=== PATIENT | female | born 1970 | race Caucasian/White ===

== ENCOUNTER 2017-02-09 16:39 | Emergency (ER) | payer SELFPAY ==
[2017-02-09 16:40] VITALS: BMI 27.4
[2017-02-09 16:45] VITALS: RESP 18
[2017-02-09] MEDS ORDERED: Naproxen 550 mg Tab PO STA (17:06)
[2017-02-09] MEDS ORDERED: Naproxen 550 mg Tab PO ONE (17:10)
--- NOTE | 2017-02-09 17:37 | C.PDOC ---
History Of Present Illness Patient presents to ED c/o left knee pain x approx 1 week. She denies falls/ injuries, rash, fever, calf pain. Time Seen by Provider: 02/09/17 16:49 Chief Complaint (Nursing): Lower Extremity Problem/Injury History Per: Patient History/Exam Limitations: no limitations Onset/Duration Of Symptoms: Days (1 week) Current Symptoms Are (Timing): Still Present Severity: Mild Past Medical History Reviewed: Historical Data, Nursing Documentation, Vital Signs Vital Signs: Last Vital Signs Temp 98.2 F 02/09/17 17:48 Pulse 72 02/09/17 17:48 Resp 18 02/09/17 17:48 BP 125/72 02/09/17 17:48 Pulse Ox 98 02/09/17 17:48 - Medical History PMH: Anxiety - [facility] Procedures DIATHER/CRYO TURBINECTOM (05/24/13) ETHMOIDECTOMY (05/24/13) IMAGELESS COMPUTER ASSISTED SURGERY (05/24/13) Family History: States: No Known Family Hx - Social History Hx Tobacco Use: No Hx Alcohol Use: No Hx Substance Use: No - Immunization History Hx Tetanus Toxoid Vaccination: No Hx Influenza Vaccination: No Hx Pneumococcal Vaccination: No Review Of Systems Except As Marked, All Systems Reviewed And Found Negative. Constitutional: Negative for: Fever, Chills Cardiovascular: Negative for: Chest Pain Respiratory: Negative for: Shortness of Breath Musculoskeletal: Positive for: Other (right knee pain ). Negative for: Leg Pain , Foot Pain Skin: Negative for: Rash Neurological: Negative for: Weakness, Numbness Physical Exam - Physical Exam Appears: Well, Non-toxic, No Acute Distress Skin: Normal Color, Warm, Dry, No Rash Oral Mucosa: Moist Cardiovascular: Rhythm Regular Respiratory: Normal Breath Sounds, No Rales, No Rhonchi, No Wheezing Extremity: No Pedal Edema, No Calf Tenderness, Capillary Refill (< 2 sec all digits ), No Deformity, Other (left knee mild anterior TTP without swelling/ erythema/deformiy) Extremity: Bilateral: Atraumatic, Normal Color And Temperature, Normal ROM Pulses: Left Dorsalis Pedis: Normal, Right Dorsalis Pedis: Normal Neurological/Psych: Oriented x3, Normal Sensation Gait: Steady ED Course And Treatment O2 Sat by Pulse Oximetry: 100 (RA) Pulse Ox Interpretation: Normal Progress Note: Patient given PO Naprosyn for pain. Xray of left knee ordered and reviewed. Mike wrap applied to left knee by plastic process technician. Reevaluation Time: 17:40 Reassessment Condition: Improved (Patient reassessed, states her pain has improved and she feels better. Patient able to ambulate normally in ED. She was given Rx for naprosyn, and was instructed to follow up with orthopedics within 1 week. Patient understands she should return to ED if symptoms worsen.) Disposition Counseled Patient/Family Regarding: Studies Performed, Diagnosis, Need For Followup, Rx Given - Disposition Referrals: Loco Cha MD [Staff Provider] - Disposition: HOME/ ROUTINE Disposition Time: 17:40 Condition: STABLE Additional Instructions: Seguimiento con ORTOPEDIA plazo de 1 semana [employer] para el dolor uso cuando sea necesario VOLVER A ashu de emergencias si los sntomas empeoran Prescriptions: Naproxen [Naprosyn Tab] 375 mg PO BID PRN #15 tab PRN Reason: pain Instructions: Knee Pain (ED) Print Language: FRENCH - POA Present On Arrival: None - Clinical Impression Clinical Impression: Left knee pain
[2017-02-09 17:50] VITALS: BP 125/72; PULSE 72; TEMP 98.2
[2017-02-09 18:20] VITALS: O2SAT 100
--- NOTE | 2017-02-10 08:55 | RAD ---
PROCEDURE: Left Knee Radiographs. HISTORY: Pain. COMPARISON: None. FINDINGS: BONES: Normal. No fracture. JOINTS: Normal. No osteoarthritis. JOINT EFFUSION: None. OTHER FINDINGS: None. IMPRESSION: Normal radiographs of the left knee.
== END 2017-02-09 17:50 | disposition home or self-care (01) ==
LOC: C.ER 16:39
DX: M25.562 Pain in left knee (principal)